=== PATIENT | male | born 1950 ===

== ENCOUNTER 2018-11-09 12:10 | Day surgery (SDC) | payer OTHER ==
--- OUTSIDE RECORDS SUMMARY | 2018-11-09 12:13 | XMS REPORT ---
:1950 [facility] [address] [place] [address] Care Team Providers Name Role Phone Unavailable Unavailable Unavailable Problems This patient has no known problems. Allergies, Adverse Reactions, Alerts This patient has no known allergies or adverse reactions. Medications This patient has no known medications.
[2018-11-09] MEDS ORDERED: NA CHLORIDE 0.9% 500 ML ONE (12:43)
[2018-11-09] MEDS: BUPIVACAINE 0.25% PF 10 ML VIAL ONE ×2 (12:46→14:05)
[2018-11-09] MEDS: LIDOCAINE 2% MPF 5 ML VIAL ONE ×2 (12:46→14:05)
[2018-11-09] MEDS: TETRACAINE HCL 0.5% 2ML OPTH ONE ×4 (12:46→14:48)
[2018-11-09 13:10] VITALS: BP 137/87; TEMP 97.5; O2SAT 100
[2018-11-09] MEDS ORDERED: MIDAZOLAM HCL 2 MG/2 ML INJ ONE (13:44)
[2018-11-09] MEDS ORDERED: LIDOCAINE 2% MPF 5 ML VIAL ONE (13:44)
[2018-11-09] MEDS ORDERED: PROPOFOL 200 MG/20 ML VIAL IV ONE (13:44)
[2018-11-09] MEDS ORDERED: NS 0.9% VIAL 0 ML ONE (14:10)
[2018-11-09] MEDS ORDERED: NEO/POLY/DEX OPTH 3.5 GM TUBE ONE (14:11)
--- NOTE | 2018-11-09 15:06 | P.BOP ---
Preoperative diagnosis: Pterygium OS Postoperative diagnosis: Same Primary procedure: Pterygium with conjunctival autograft OS Estimated blood loss: None Anesthesia: Local (Subtenon's infusion with anesthesia for cataract surgery) Complications: None Transferred to: Other (Day surgery) Condition: Good
--- NOTE | 2018-11-09 21:50 | OP ---
Date of Procedure: 11/09/2018 Surgeon: Dary Rosenthal MD Anesthesiologist: Tavo Sanders CRNA and Cirilo Johnson M.D. Indications: Mr. Gaytan has a pterygium, OS, that is inducing an irregular astigmatism and decrease in vision, OS. Procedure: Pterygium excision with conjunctival autograft, left eye. Anesthesia: Per cataract surgery. Complications: None. Description Of Procedure: The patient was administered a subtenon infusion in the operative room. The eye was prepped and draped, and a lid speculum was placed in the left eye. A 1:1 mixture of 2% xylocaine and 0.25% bupivacaine was placed around the globe. Approximately 5 cc was given. The bulbar pterygium was marked with a marking pen, and Pranav scissors were used to remove the bulbar pterygium. Weck-Cels were used to dissect the corneal pterygium from the cornea. A bur was used to smooth the corneal surface. Bipolar cautery was used for hemostasis. A 7-0 Vicryl traction suture was placed in the superior limbus, and an 11 x 7 conjunctival autograft was harvested from the superior conjunctiva. Tisseel glue, thrombin, and fibrin were placed on the bare sclera and the conjunctival autograft was placed over the bare sclera. Two minutes were allowed to elapse. Tisseel glue, thrombin, and fibrin were placed in the superior bare sclera, and the conjunctiva was reapproximated. Again, 2 minutes were allowed to elapse. Neomycin polymyxin dexamethasone ointment was placed in the eye. The eye was patched with a soft cotton patch and Hassan metal shield. The patient was returned to Day Surgery and was discharged to home. Discharge Instructions: Mr. Gaytan is discharged to home. He is to follow up with Dr. Rosenthal in the morning. JONATAN/EDGAR Voice ID: [id number] Report ID: [id number] CLYDE
== END 2018-11-09 15:35 | disposition home or self-care (01) ==
LOC: PRE 12:10
PROVIDERS: ATTEND Ophthalmology Retina Specialist
PROC: 08BTXZZ Excision of Left Conjunctiva, External Approach (ICD-10-PCS; 2018-11-09)
PROC: 08RTX7Z Replacement of Left Conjunctiva with Autologous Tissue Substitute, External Approach (ICD-10-PCS; principal; 2018-11-09 12:00)
DX: H11.042 Peripheral pterygium, stationary, left eye (principal); H52.212 Irregular astigmatism, left eye; E11.9 Type 2 diabetes mellitus without complications; E78.00 Pure hypercholesterolemia, unspecified; M10.9 Gout, unspecified; Z79.84 Long term (current) use of oral hypoglycemic drugs; Z79.899 Other long term (current) drug therapy
CPT/HCPCS: 65426; 82962; 88304; J2250; J2704; 88305